=== PATIENT | female | born 1945 | race African-American/Black ===

== ENCOUNTER → 2016-10-17 | Outpatient (CLI) | payer OTHER, MEDICARE | END | disposition home or self-care (01) | LOC: PCVCCLINIC 15:00 | PROVIDERS: ATTEND Internal Medicine Cardiovascular Disease | DX: E78.00 Pure hypercholesterolemia, unspecified (principal); I25.5 Ischemic cardiomyopathy; I10 Essential (primary) hypertension; I73.9 Peripheral vascular disease, unspecified; I25.10 Atherosclerotic heart disease of native coronary artery without angina pectoris | CPT/HCPCS: 80061; 93005; G0463 ==

== ENCOUNTER → 2017-02-15 | Outpatient (CLI) | payer OTHER, MEDICARE | END | disposition home or self-care (01) | LOC: PCVCIMAG 13:56 | PROVIDERS: ATTEND Internal Medicine Cardiovascular Disease | DX: I08.1 Rheumatic disorders of both mitral and tricuspid valves (principal); I25.5 Ischemic cardiomyopathy; I50.9 Heart failure, unspecified; Z95.0 Presence of cardiac pacemaker | CPT/HCPCS: 80061; 93306; G0463 ==

== ENCOUNTER → 2017-08-17 | Outpatient (CLI) | payer OTHER, MEDICARE | END | disposition home or self-care (01) | LOC: PCVCCLINIC 10:40 | PROVIDERS: ATTEND Internal Medicine Cardiovascular Disease | DX: Z45.02 Encounter for adjustment and management of automatic implantable cardiac defibrillator (principal); I11.0 Hypertensive heart disease with heart failure; I50.9 Heart failure, unspecified; I25.10 Atherosclerotic heart disease of native coronary artery without angina pectoris; I25.5 Ischemic cardiomyopathy; I42.9 Cardiomyopathy, unspecified; I49.5 Sick sinus syndrome; Z87.891 Personal history of nicotine dependence; Z79.899 Other long term (current) drug therapy; Z79.82 Long term (current) use of aspirin | CPT/HCPCS: 80061; 93005; G0463 ==

== ENCOUNTER → 2017-09-14 | Outpatient (CLI) | payer OTHER, MEDICARE ==
[~2017-09-14] MED LIST: REGADENOSON 0.4 MG/5 ML DISP.SYRIN. IV ONE
--- NOTE | 2017-09-14 14:18 | PCVCIMAG ---
APPROVED REPORT Exam: Nuclear Stress Test Indication: CAD , Dyspnea Patient Location: Out-Patient Stress Nurse: Dorcas Johnson RN, Rosaline Valdez RN [place] Tech:Rex KELLY Marina Ht: 5 ft 6 in Wt: 170 lbs BSA: 1.87 m2 HR: 63 bpm BP: 138/67 mmHg BMI: 27.4 Rhythm: PACED Medical History Medical History: AGE, HYPERLIPIDEMIA, HTN, CHF, COPD, CAD, DM(INSULIN),PACEMAKER, HX VFIB(08/2017), MURMUR, ICM, CKD Medications: AMIODARONE, ALBUTEROL, AMLODIPINE, ISOSORBIDE, HUMALOG, ASPIRIN, PRAVASTATIN, SPIRONOLACTONE, COREG (HELD 24H) Previous Cardiac Procedures: CABG(2008 X5) Pretest Chest Pain Characteristics: No chest pain Exercise History: Sedentary Physical Disabilities: USES CANE NM EXAM: Myocardial Perfusion REST/STRESS Imaging Protocol: Rest Tc-99m/Stress Tc-99m 1 day Resting Data Rest SPECT myocardial perfusion imaging was performed in supine position 45 minutes following the intravenous injection of 11.3 mCi of Tc-99m Sestamibi. Time of rest injection: 0845 Date: 09/14/2017 Administration Route: IV Administration Site: Left Hand Pharmacologic Stress Pharmacologic stress test was performed by injecting Regadenoson 0.4 mg IV push followed by the intravenous injection of 31.9 mCi of Tc-99m Sestamibi. Time of stress injection: 1020 Date: 09/14/2017 Administration Route: IV Administration Site: Left Hand Gated Stress SPECT was performed 45 minutes after stress injection. The images were gated to evaluate regional wall motion and calculate left ventricular ejection fraction. Study Quality Study: Good Study Data Post stress, the left ventricular ejection was 22%.. SSS: 9 SRS: 5 SDS: 4 TID = 0.91. Perfusion No evidence of stress induced ischemia. 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 Wall Motion Left ventricular dilatation. Severely decreased left ventricular systolic function. Nuclear Conclusion No evidence of stress induced ischemia. 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 Post stress, the left ventricular ejection was 22%.. No change since prior study dated March 2015. Interpreted by: Kwasi Connolly MD Electronically Approved: 09/14/2017 12:41:46 Stress Test Details Stress Test: Pharmacologic stress testing performed using 0.4 mg of regadenoson per 5 mL given IV over 10 seconds. Reason for pharmacologic stress test: USES A CANE. HR Resting HR: 63 bpmMax Heart Rate (APMHR): 148 bpm Max HR Achieved: 62 bpmTarget HR (85% APMHR): 125 bpm % of APMHR: 41 Recovery HR: 64 bpm BP Resting BP: 138/67 mmHg Max BP: 144/74 mmHg ECG Resting ECG: PACED Stress ECG: PACED Recovery ECG: PACED Clinical Reason for Termination: Completed protocol Stress Symptoms: Dyspnea, STOMACHACHE Exercise duration: 0 min 55 sec Stress ECG Conclusion non diagnostic <Conclusion> non diagnostic
== END | disposition home or self-care (01) ==
LOC: PCVCIMAG 08:14
PROVIDERS: ATTEND Internal Medicine Cardiovascular Disease
DX: I25.10 Atherosclerotic heart disease of native coronary artery without angina pectoris (principal); R06.00 Dyspnea, unspecified; J44.9 Chronic obstructive pulmonary disease, unspecified; I13.0 Hypertensive heart and chronic kidney disease with heart failure and stage 1 through stage 4 chronic kidney disease, or unspecified chronic kidney disease; E11.22 Type 2 diabetes mellitus with diabetic chronic kidney disease; N18.9 Chronic kidney disease, unspecified; Z79.4 Long term (current) use of insulin; Z95.5 Presence of coronary angioplasty implant and graft
CPT/HCPCS: 78452; 93017; A9500; J2785

== ENCOUNTER → 2017-09-21 | Outpatient (CLI) | payer OTHER, MEDICARE | END | disposition home or self-care (01) | LOC: PCVCCLINIC 10:30 | PROVIDERS: ATTEND Internal Medicine Cardiovascular Disease | DX: I25.10 Atherosclerotic heart disease of native coronary artery without angina pectoris (principal); I25.5 Ischemic cardiomyopathy; I10 Essential (primary) hypertension; I49.5 Sick sinus syndrome; I73.9 Peripheral vascular disease, unspecified; E11.8 Type 2 diabetes mellitus with unspecified complications; R53.83 Other fatigue; Z95.1 Presence of aortocoronary bypass graft; Z95.810 Presence of automatic (implantable) cardiac defibrillator; Z79.899 Other long term (current) drug therapy; Z87.891 Personal history of nicotine dependence; Z79.82 Long term (current) use of aspirin; Z79.4 Long term (current) use of insulin | CPT/HCPCS: 36415; 93005; G0463 ==